=== PATIENT | female | born 2005 | race Caucasian/White ===

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

== ENCOUNTER 2025-02-09 12:13 | Outpatient (CLI) | payer BC ==
[2025-02-09 13:14] LABS: MEAN PLATELET VOLUME 9.8 FL (7.4-10.4); RED CELL DISTRIBUTION WIDTH 17.2 % (11.5-14.5)
== END 2025-02-09 23:59 | disposition home or self-care (01) ==
LOC: RAD 12:13
PROVIDERS: ATTEND Family Medicine
DX: I10 Essential (primary) hypertension (principal); E55.9 Vitamin D deficiency, unspecified
CPT/HCPCS: 36415; 82306; 85025